=== PATIENT | female | born 1975 | race Caucasian/White ===

== ENCOUNTER 2024-10-14 16:07 | Emergency (ER) | payer MEDICAID, SELFPAY ==
[2024-10-14] VITALS (7 sets, daily range): BP systolic 127–155; BP diastolic 81–115; PULSE 76–99; RESP 12–20; TEMP 36.6; O2SAT 98–100; BMI 23.8
--- NOTE | 2024-10-14 16:15 | ECG_ITS ---
APPROVED REPORT Exam: Resting ECG HR:79 bpm ECG Measurements Heart Rate 79 AXES WV 154 P 71 QRSd 97 QRS 77 QT 393 T 73 QTc 427 Conclusion SINUS RHYTHM NORMAL ECG UNCONFIRMED REPORT Electronically signed by : JUSTO SALINAS, 10/19/2024 00:01:32
--- NOTE | 2024-10-14 16:23 | [facility].EDGENADL ---
Discharge Plan Disposition Patient Disposition: Home, Self-Care Prescriptions Prescriptions: No Action No Known Home Medications Referrals Follow up/Referrals: Provider,Referral, MD [Primary Care Provider] - See instructions Activity Restrictions/Add. Instructions Additional Instructions/Restrictions: At this time it was felt you are safe to be discharged home. If new or worsening symptoms please do not hesitate to return the emergency department. Please refrain from using heroin. Our peers support counselor Mayra should contact you in the next 48 hours to help you. Clinical Impressions Clinical Impression: Opioid use disorder, Opioid abuse Print Language Print Language: [place] Discharge ED Provider: Tk Marin [facility] Adult HPI General Chief complaint: Overdose Stated complaint: feeling flush and red, racing hr(shot up heroin) Time Seen by Provider: 10/14/24 16:14 Mode of Arrival: EMS Source of Information: Patient and EMS Limitations: No Limitations Description of Symptoms (Recalled from ER Triage Doc. by RN): EMS was toned out at 1524 for possible OD. pt states she injects heroin hourly. pt reports she has done this for 20 years. she has a GCS of 15 and is A&O x4. pt states initially she was having palpatations, racing heart, flushed and hot. pt reports at this time her cardiac symptoms have improved. Now she is chilling and shaking. 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 pt states the heroin she used this time was from somewhere different then where she typically get it. It was a different batch than what she used earlier in the day. pt denies SOA or chest pain. History of Present Illness HPI narrative: Patient is a 49-year-old female with past medical history of heroin addiction using hourly for the last 20 years who presents emergency department for evaluation of palpitations. History is obtained by patient at bedside. She injected heroin from a new dealer that she bought from today and immediately experienced facial flushing and rapid heart rate causing her to become concerned and called 911 for continued evaluation. No other acute complaints. Related Data Home Medications ?Medication ?Instructions ?Recorded ?Confirmed No Known Home Medications 10/14/24 10/14/24 Allergies Allergy/AdvReac Type Severity Reaction Status Date / Time codeine (CODEINE) Allergy Unknown Unknown Verified 10/14/24 16:26 allergy reaction [facility] Disclaimer: The information contained in this section may have been updated after the patient was seen, as this information can be updated by other users. Medical History (Updated 10/14/24 @ 17:57 by Tk Marin MD) Heroin abuse Social History (Updated 10/14/24 @ 16:25 by Elaina Flores, MASON) Smoking Status: Current every day smoker alcohol intake: never current occupational status: other Travel in the last 8 weeks: None ROS Obtained: Yes Systems reviewed as appropriate & no additional complaints except as documented Physical Exam General General appearance: alert and in no apparent distress Head Head exam: atraumatic and normocephalic Eye Eye exam: Present PERRL ENT ENT exam: Present mucous membranes moist Neck Neck exam: Present normal inspection Chest Chest inspection: Present normal inspection and symmetric chest wall rise Respiratory Respiratory exam: Present normal lung sounds bilaterally; Absent respiratory distress Cardiovascular Cardiovascular exam: Present regular rate and normal rhythm Abdominal Exam Abdominal exam: Present soft; Absent tenderness Extremities Exam Extremities exam: Present normal inspection Neurological Exam Neurological exam: Present alert and CN II-XII intact Psychiatric Psychiatric exam: Present normal affect Skin Skin exam: Present warm and dry Medical Decision Making Medical Records Screening: Per USPSTF and CDC recommendations, given the prevalence of disease in our region, it is our hospital?s policy to screen for HIV and viral Hepatitis for all patients aged 18 and over and those with ongoing risk factors. Abdirahman Inquiry Pt receiving controlled substance: No Vital Signs: 10/14/24 16:12 10/14/24 16:17 10/14/24 16:26 Temperature 97.8 F Temperature Source Oral Pulse Rate 89 79 Pulse Rate [Left] 87 Respiratory Rate 20 16 Blood Pressure 155/115 H 155/81 H Blood Pressure [Right Arm] 155/115 H Blood Pressure Mean [Right Arm] 128 Blood Pressure Source [Right Arm] Automatic Cuff Blood Pressure Position [Right Arm] Sitting 02 Sat by Pulse Oximetry 98 99 100 Oxygen Delivery Method Room Air Room Air Room Air 10/14/24 16:30 10/14/24 17:00 10/14/24 17:30 Temperature Temperature Source Pulse Rate 76 84 81 Pulse Rate [Left] Respiratory Rate 15 15 14 Blood Pressure 147/82 H 134/82 127/83 Blood Pressure [Right Arm] Blood Pressure Mean [Right Arm] Blood Pressure Source [Right Arm] Blood Pressure Position [Right Arm] 02 Sat by Pulse Oximetry 100 100 100 Oxygen Delivery Method Room Air Room Air Room Air 10/14/24 17:55 Temperature 97.8 F Temperature Source Pulse Rate 99 H Pulse Rate [Left] Respiratory Rate 12 Blood Pressure 137/83 Blood Pressure [Right Arm] Blood Pressure Mean [Right Arm] Blood Pressure Source [Right Arm] Blood Pressure Position [Right Arm] 02 Sat by Pulse Oximetry Oxygen Delivery Method Orders (Tests/Meds): ORDERS Category Date Time Status Consult Component Design Engineer [CONS] Routine Cons 10/14/24 16:48 Active ECG Data Tracing #1: Independently interpreted by me rate 79, rhythm is regular, axis is normal, no ST elevation in anatomical contiguous leads, QTc 427 Medical Decision Narrative: In summary patient is a 49-year-old female past medical history described above who presents emergency department for evaluation of adverse reaction to heroin. Patient is hemodynamically stable nontoxic-appearing upon arrival, afebrile, heart rate 87. Her heart rate from her tachycardia has subsided prior to arrival. Fingerstick blood glucose nonactionable just over 200. EKG obtained at bedside nonactionable. Given this I suspect that patient had an adulterant with her heroin and had adverse reaction to that which has subsided. I will observe the patient in the emergency department for an hour to make sure that her clinical status remains the same. Patient already has multiple doses of Narcan at home and the subject of quitting was broached and she is open to this. Given this I will place peer support consult and she will be contacted by Mayra. The patient was placed in observation status at 4:25 PM. Medical necessity for observational status is serial evaluations in the setting of recent heroin administration. The patient was provided serial reevaluations and clinical research monitor while awaiting results. Results of testing during observation remarkable for stable vital signs, stable mental status, no changes on physical exam.. Because of this I feel patient is appropriate for outpatient management at this time without any further investigation given that we need no what happened thanks to her honesty. Total time in observation was 90 minutes. Critical Care Critical Care Time Critical Care Time: No
--- NOTE | 2024-10-14 16:26 | PC.NURSE ---
glucose 221
== END 2024-10-14 18:01 | disposition home or self-care (01) ==
PROVIDERS: Emergency Provider Emergency Medicine
DX: F11.10 Opioid abuse, uncomplicated (principal); R00.2 Palpitations; R23.2 Flushing; R68.83 Chills (without fever); Z72.0 Tobacco use
CPT/HCPCS: 93005; 99284